=== PATIENT | female | born 1970 | race Native Hawaiian/Other Pacific Islander ===

== ENCOUNTER 2018-02-12 08:37 | Outpatient (CLI) | payer OTHER ==
[~2018-02-12 08:37] MED LIST: ADDERALL20 MG OR; CETI10TA PO; HYDR25TA15 PO
== END 2018-02-12 19:12 | disposition home or self-care (01) ==
LOC: MAMMO 08:37
DX: Z12.31 Encounter for screening mammogram for malignant neoplasm of breast (principal)

== ENCOUNTER 2018-03-13 09:32 | Outpatient (CLI) | payer OTHER | END 2018-03-13 19:14 | disposition home or self-care (01) | LOC: MAMMO 09:32 | DX: R92.2 Inconclusive mammogram (principal) ==

== ENCOUNTER 2019-12-01 07:03 | Emergency (ER) | payer OTHER ==
[~2019-12-01] VITALS: Ht 154.9 cm; Wt 77.1 kg
[2019-12-01 07:11] VITALS: TEMP 98.1
[2019-12-01] MEDS ORDERED: ADDERALL20 MG PO (07:17)
[2019-12-01] MEDS ORDERED: BUPR8SUB2 PO (07:20)
[2019-12-01 08:07] LABS: PLATELET COUNT 208 K/uL (152-353)
[2019-12-01 08:09] LABS: POTASSIUM 3.5 mmol/L (3.6-5.2)
[2019-12-01 09:10] VITALS: BP 178/82
== END 2019-12-01 09:10 | disposition home or self-care (01) ==
LOC: ED 07:03
PROVIDERS: Student in an Organized Health Care Education/Training Program
DX: N20.1 Calculus of ureter (principal); R10.9 Unspecified abdominal pain; N23 Unspecified renal colic
CPT/HCPCS: 36415; 80053; 81000; 81025; 83690; 83735; 85027; 96360; 96361; 96365; 96375; 99284; J1885; J2405

== ENCOUNTER 2021-11-14 09:38 | Outpatient (CLI) | payer OTHER ==
[~2021-11-14] VITALS: Ht 154.9 cm; Wt 73.9 kg
[~2021-11-14 09:38] MED LIST changes: +ADDERALL20 MG PO; +BUPR8SUB2 PO
== END 2021-11-14 21:21 | disposition home or self-care (01) ==
LOC: INF 09:38
PROVIDERS: ATTEND Family Medicine
DX: Z23 Encounter for immunization (principal); U07.1 COVID-19
CPT/HCPCS: 96365; M0244

== ENCOUNTER 2022-11-22 13:59 | Outpatient (CLI) | payer BC | END 2022-11-22 19:55 | disposition home or self-care (01) | LOC: MAMMO 13:59 | PROVIDERS: ATTEND Obstetrics & Gynecology | DX: Z12.31 Encounter for screening mammogram for malignant neoplasm of breast (principal) ==

== ENCOUNTER 2023-04-10 13:07 | Outpatient (CLI) | payer BC ==
[2023-04-10 13:28] LABS: PLATELET COUNT 226 K/uL (152-353)
[2023-04-10 13:31] LABS: POTASSIUM 3.8 mmol/L (3.6-5.2)
== END 2023-04-10 17:00 ==
LOC: RAD 13:07
PROVIDERS: ATTEND Family Medicine
DX: R60.0 Localized edema (principal)
CPT/HCPCS: 36415; 80053; 85027; 85379